=== PATIENT | female | born 1930 | race Caucasian/White ===

== ENCOUNTER 2017-04-05 10:56 | Inpatient (IN) | payer MEDICARE, BC ==
[~2017-04-05] VITALS: Ht 144.8 cm; Wt 53.0 kg
[~2017-04-05 10:56] MED LIST: ALBU90OI INH; ALLO100 PO; ASPI325EC PO; ASPI81CH PO; ATOR20 PO; ATORVASTATIN; ATORVASTATIN CA10 MG PO; ATORVASTATIN CA20 MG PO; Amiodarone HCl200 MG PO; Amoxicillin500 MG PO; BUPR150ER PO; Bactrim Ds Tab1 EACH PO; Benicar5 MG PO; CEFD300 PO; CEPH500 PO; CIPR500 PO; CITA10S PO; CLON.5 PO; CLOP75 PO; CYMBALTA PO; Cartia Xt120 MG PO; Clonazepam0.5 MG PO; Cymbalta20 MG PO; DILT120 PO; Dulcolax Stool100 MG PO; ELIQUIS5 MG PO; FISH1000 PO; FLUSAL5005 INH; FURO20 PO; Ferosul325 MG PO; HYDMOR2 PO; Hair, Skin & N1 EACH PO; Hydrocodone-Ap1 EA23 PO; IRON150C PO; LEFL20 PO; LORA.5 PO; LOSA50 PO; LUTEIN-ZEAXANT1 EACH PO; METTREX2.5 PO; MULVITB PO; Macrobid 100 M100 MG PO; NITR.4SL SL; Nitrostat0.4 MG; OLME20 PO; OLME5TAB PO; OMEP20ER PO; OXYB5 PO; POTA10T PO; PRED10 PO; PRED20 PO; PRED5 PO; PROBIOTIC1 EAC1 PO; Pantoprazole So40 MG PO; Prednisone20 MG PO; QUIN324 PO; SIME80CH PO; SIMV40 PO; TIAZAC PO; TRAZ50 PO; Ventolin/Prove6.7 GM INH; XARELTO20 MG PO; Z PACK; Zithromax250 MG PO; Zofran4 MG PO
[2017-04-05 11:32] LABS: BASOPHILS ABSOLUTE AUTO 0.01 K/mm3 (0.00-0.23); BASOPHILS PERCENT AUTO 0 % (0-2); EOSINOPHILS ABSOLUTE AUTO 0.07 K/mm3 (0.00-0.68); EOSINOPHILS PERCENT AUTO 1 % (0-6); Hematocrit 34.9 % (33.0-51.0); Hemoglobin 11.3 g/dL (11.5-16.0); IMMATURE GRAN ABSOLUTE AUTO 0.02 K/mm3 (0.00-0.10); IMMATURE GRAN PERCENT AUTO 0 % (0-1); LYMPHOCYTES ABSOLUTE AUTO 1.58 K/mm3 (0.84-5.20); LYMPHOCYTES PERCENT AUTO 21 % (21-46); MONOCYTES ABSOLUTE AUTO 0.42 K/mm3 (0.16-1.47); MONOCYTES PERCENT AUTO 6 % (4-13); Mean Corpuscular HGB 31.6 pg (26.0-34.0); Mean Corpuscular HGB Conc 32.4 g/dL (31.5-36.5); Mean Corpuscular Volume 98 fL (80-100); Mean Platelet Volume 9.6 fL (9.1-12.4); NEUTROPHILS ABSOLUTE AUTO 5.46 K/mm3 (1.96-9.15); NEUTROPHILS PERCENT AUTO 72 % (41-73); Platelet Count 220 K/mm3 (150-400); RDW Coefficient Variation 13.6 % (11.7-14.2); RDW Standard Deviation 47.7 fL (35.1-46.3); Red Blood Cell Count 3.58 M/mm3 (3.80-5.20); White Blood Cell Count 7.56 K/mm3 (4.00-11.30)
[2017-04-05 11:50] LABS: Alanine Aminotransfer (ALT/SGP 19 U/L (12-78); Albumin, Blood 3.5 g/dL (3.4-5.0); Albumin/Globulin Ratio 0.9 (0.8-1.8); Alk Phos 129 U/L (50-136); Anion Gap 6 mmol/L (6-16); Aspartate Aminotrans (AST/SGOT 24 U/L (12-37); Bilirubin, Total 0.6 mg/dL (0.1-1.0); Blood Urea Nitrogen 16 mg/dL (8-24); Bun/Creatinine Ratio 22.3 (12.0-20.0); CO2, Blood 28 mmol/L (21-32); Chloride, Blood 108 mmol/L (98-108); Creatinine, Blood 0.72 mg/dL (0.40-1.00); Globulin, Blood 3.7 g/dL (2.2-4.0); Glomerular Filtration Rate >60 (60-); Glucose, Blood 111 mg/dL (70-99); Potassium, Blood 4.3 mmol/L (3.5-5.5); Sodium, Blood 142 mmol/L (136-145); Total Protein, Blood 7.2 g/dL (6.4-8.2); Troponin I <0.015 ng/mL (0.000-0.040)
[2017-04-05] MEDS ORDERED: COLACE 2-IN-11 EACH PO (16:56)
[2017-04-05] MEDS ORDERED: TRAZ50 PO (16:57)
[2017-04-06 04:40] LABS: BASOPHILS PERCENT AUTO 0 % (0-2); EOSINOPHILS PERCENT AUTO 0 % (0-6); Hematocrit 33.3 % (33.0-51.0); Hemoglobin 10.9 g/dL (11.5-16.0); IMMATURE GRAN ABSOLUTE AUTO 0.01 K/mm3 (0.00-0.10); IMMATURE GRAN PERCENT AUTO 0 % (0-1); LYMPHOCYTES ABSOLUTE AUTO 0.66 K/mm3 (0.84-5.20); LYMPHOCYTES PERCENT AUTO 10 % (21-46); MONOCYTES ABSOLUTE AUTO 0.18 K/mm3 (0.16-1.47); MONOCYTES PERCENT AUTO 3 % (4-13); Mean Corpuscular HGB 31.1 pg (26.0-34.0); Mean Corpuscular HGB Conc 32.7 g/dL (31.5-36.5); NEUTROPHILS ABSOLUTE AUTO 5.57 K/mm3 (1.96-9.15); NEUTROPHILS PERCENT AUTO 87 % (41-73); Platelet Count 234 K/mm3 (150-400); RDW Coefficient Variation 13.3 % (11.7-14.2); RDW Standard Deviation 45.7 fL (35.1-46.3); White Blood Cell Count 6.42 K/mm3 (4.00-11.30)
[2017-04-06 04:55] LABS: Mean Corpuscular Volume 95 fL (80-100)
[2017-04-06 05:01] LABS: Alanine Aminotransfer (ALT/SGP 18 U/L (12-78); Albumin, Blood 3.2 g/dL (3.4-5.0); Albumin/Globulin Ratio 0.8 (0.8-1.8); Alk Phos 120 U/L (50-136); Anion Gap 7 mmol/L (6-16); Aspartate Aminotrans (AST/SGOT 18 U/L (12-37); Bilirubin, Total 0.5 mg/dL (0.1-1.0); Blood Urea Nitrogen 20 mg/dL (8-24); Bun/Creatinine Ratio 27.5 (12.0-20.0); CO2, Blood 28 mmol/L (21-32); Chloride, Blood 104 mmol/L (98-108); Creatinine, Blood 0.73 mg/dL (0.40-1.00); Globulin, Blood 3.8 g/dL (2.2-4.0); Glomerular Filtration Rate >60 (60-); Glucose, Blood 134 mg/dL (70-99); Potassium, Blood 4.3 mmol/L (3.5-5.5); Sodium, Blood 139 mmol/L (136-145)
[2017-04-09 04:41] LABS: Anion Gap 7 mmol/L (6-16); Blood Urea Nitrogen 20 mg/dL (8-24); Bun/Creatinine Ratio 26.8 (12.0-20.0); CO2, Blood 31 mmol/L (21-32); Calcium, Blood 8.6 mg/dL (8.5-10.1); Chloride, Blood 104 mmol/L (98-108); Creatinine, Blood 0.75 mg/dL (0.40-1.00); Glomerular Filtration Rate >60 (60-); Glucose, Blood 100 mg/dL (70-99); Potassium, Blood 3.7 mmol/L (3.5-5.5); Sodium, Blood 142 mmol/L (136-145)
[2017-04-10] MEDS ORDERED: Norvasc2.5 MG PO (10:25)
[2017-04-10] MEDS ORDERED: HYDCHL25 PO (10:26)
[2017-04-10] MEDS ORDERED: ELIQUIS2.5 MG PO (10:26)
[2017-04-10] MEDS ORDERED: LISI20 PO (10:27)
[2017-06-25] MEDS ORDERED: Icaps Tablet1 EACH PO (15:06)
[2017-06-25] MEDS ORDERED: PANT40 PO (15:07)
[2017-06-25] MEDS ORDERED: ALBU90OI INH (15:07)
[2017-06-25] MEDS ORDERED: CVS MELATONIN PO (15:08)
[2017-06-25] MEDS ORDERED: Stool Softener100 MG PO (15:09)
[2017-06-25] MEDS ORDERED: ELIQUIS5 MG PO (15:10)
[2017-06-25] MEDS ORDERED: OXYB5 PO (15:10)
[2017-06-25] MEDS ORDERED: Benicar Hct 201 EACH PO (15:10)
== END 2017-04-10 13:16 | disposition home or self-care (01) | DRG 309 ==
LOC: ER 10:56 → PCU 14:05 → SURS 04-09 12:52
PROVIDERS: Internal Medicine; Physician Assistant
DX: I48.0 Paroxysmal atrial fibrillation (principal); J96.11 Chronic respiratory failure with hypoxia; I11.0 Hypertensive heart disease with heart failure; I08.3 Combined rheumatic disorders of mitral, aortic and tricuspid valves; I50.9 Heart failure, unspecified; J84.10 Pulmonary fibrosis, unspecified; J44.9 Chronic obstructive pulmonary disease, unspecified; E78.5 Hyperlipidemia, unspecified; F32.9 Major depressive disorder, single episode, unspecified; M10.9 Gout, unspecified; M06.9 Rheumatoid arthritis, unspecified; K21.9 Gastro-esophageal reflux disease without esophagitis; D63.8 Anemia in other chronic diseases classified elsewhere; Z66 Do not resuscitate; Z86.73 Personal history of transient ischemic attack (TIA), and cerebral infarction without residual deficits; Z88.8 Allergy status to other drugs, medicaments and biological substances; Z79.899 Other long term (current) drug therapy; Z99.81 Dependence on supplemental oxygen; Z87.891 Personal history of nicotine dependence
CPT/HCPCS: 36415; 71046; 80048; 80053; 81000; 83880; 84484; 85025; 92526; 92610; 93005; 93010; 93306; 97161; 97530; 99285; G8978; G8979; G8980; G8996; G8997; G8998; J1650

== ENCOUNTER → 2017-05-07 | Outpatient (CLI) | payer MEDICARE ==
[~2017-05-07] MED LIST changes: +Amlodipine Bes2.5 MG PO; +Benicar Hct 201 EACH PO; +COLACE 2-IN-11 EACH PO; +CVS MELATONIN PO; +DULOXETINE HCL20 MG PO; +ELIQUIS2.5 MG PO; +HYDCHL25 PO; +Icaps Tablet1 EACH PO; +LISI20 PO; +Norvasc2.5 MG PO; +PANT40 PO; +Stool Softener100 MG PO
[2017-05-07 19:21] LABS: Appearance, Urine Cloudy (Clear); Bilirubin, Urine Neg (Neg); Blood, Urine 2+ (Neg); Color, Urine Yellow (P-Yellow); Glucose Qualitative, Urine Neg (Neg); Ketones, Urine Neg (Neg); Leukocyte Esterase, Urine 3+ (Neg); Nitrite, Urine Neg (Neg); Protein, Urine 2+ (Neg); Urobilinogen, Urine NORM (Normal)
[2017-05-07 19:46] LABS: White Blood Cells, Urine 50-100 /hpf (0-5)
[2017-05-07 19:51] LABS: Bacteria Mod /hpf; Squamous Epithelial Cells Few /hpf (Few)
== END ==
LOC: LAB SHORT 16:03
PROVIDERS: Internal Medicine Cardiovascular Disease
DX: N39.0 Urinary tract infection, site not specified (principal)
CPT/HCPCS: 81001; 87086

== ENCOUNTER 2017-05-21 19:16 | Observation (INO) | payer MEDICARE, BC ==
[~2017-05-21] VITALS: Ht 149.9 cm; Wt 53.5 kg
[~2017-05-21 19:16] MED LIST changes: -Amlodipine Bes2.5 MG PO; -Benicar Hct 201 EACH PO; -CVS MELATONIN PO; -DULOXETINE HCL20 MG PO; -Icaps Tablet1 EACH PO; -PANT40 PO; -Stool Softener100 MG PO
[2017-05-21 20:37] LABS: BASOPHILS ABSOLUTE AUTO 0.03 K/mm3 (0.00-0.23); BASOPHILS PERCENT AUTO 0 % (0-2); EOSINOPHILS ABSOLUTE AUTO 0.16 K/mm3 (0.00-0.68); EOSINOPHILS PERCENT AUTO 2 % (0-6); Hematocrit 36.3 % (33.0-51.0); Hemoglobin 11.8 g/dL (11.5-16.0); IMMATURE GRAN ABSOLUTE AUTO 0.02 K/mm3 (0.00-0.10); IMMATURE GRAN PERCENT AUTO 0 % (0-1); LYMPHOCYTES ABSOLUTE AUTO 2.44 K/mm3 (0.84-5.20); LYMPHOCYTES PERCENT AUTO 28 % (21-46); MONOCYTES ABSOLUTE AUTO 0.51 K/mm3 (0.16-1.47); MONOCYTES PERCENT AUTO 6 % (4-13); Mean Corpuscular HGB 30.9 pg (26.0-34.0); Mean Corpuscular HGB Conc 32.5 g/dL (31.5-36.5); Mean Corpuscular Volume 95 fL (80-100); Mean Platelet Volume 9.9 fL (9.1-12.4); NEUTROPHILS ABSOLUTE AUTO 5.69 K/mm3 (1.96-9.15); NEUTROPHILS PERCENT AUTO 64 % (41-73); Platelet Count 243 K/mm3 (150-400); RDW Coefficient Variation 13.4 % (11.7-14.2); RDW Standard Deviation 46.9 fL (35.1-46.3); Red Blood Cell Count 3.82 M/mm3 (3.80-5.20); White Blood Cell Count 8.85 K/mm3 (4.00-11.30)
[2017-05-21 20:50] LABS: International Normalized Ratio 1.04; Prothrombin Time Results 10.8 Sec (9.7-11.5)
[2017-05-21 20:53] LABS: Alanine Aminotransfer (ALT/SGP 36 U/L (12-78); Albumin, Blood 3.3 g/dL (3.4-5.0); Albumin/Globulin Ratio 0.8 (0.8-1.8); Alk Phos 171 U/L (50-136); Anion Gap 8 mmol/L (6-16); Aspartate Aminotrans (AST/SGOT 33 U/L (12-37); Bilirubin, Total 0.2 mg/dL (0.1-1.0); Blood Urea Nitrogen 20 mg/dL (8-24); Bun/Creatinine Ratio 20.3 (12.0-20.0); CO2, Blood 28 mmol/L (21-32); Calcium, Blood 9.3 mg/dL (8.5-10.1); Chloride, Blood 104 mmol/L (98-108); Creatinine, Blood 0.99 mg/dL (0.40-1.00); Globulin, Blood 4.1 g/dL (2.2-4.0); Glomerular Filtration Rate 57 (60-); Glucose, Blood 105 mg/dL (70-99); Potassium, Blood 4.5 mmol/L (3.5-5.5); Sodium, Blood 140 mmol/L (136-145); Total Protein, Blood 7.4 g/dL (6.4-8.2); Troponin I <0.015 ng/mL (0.000-0.040)
[2017-05-22 05:15] LABS: CHOL/HDL RATIO 5.7; Cholesterol 223 mg/dL (50-200); HDL Cholesterol 39 mg/dL (>39); LDL/HDL RATIO 3.8; Low Density Lipoprotein Chol 146 mg/dL (0-110); Triglycerides 188 mg/dL (30-160); Very Low Density Lipoprot Chol 37 mg/dL (6-32)
[2017-05-22 08:14] LABS: Source, Urine Clean Catch
[2017-05-22 08:19] LABS: Bilirubin, Urine Neg (Neg); Blood, Urine Neg (Neg); Glucose Qualitative, Urine Neg (Neg); Ketones, Urine Neg (Neg); Leukocyte Esterase, Urine Neg (Neg); Nitrite, Urine Neg (Neg); Protein, Urine Neg (Neg); Urobilinogen, Urine NORM (Normal)
[2017-05-22 08:25] LABS: Appearance, Urine Clear (Clear); Color, Urine Yellow (P-Yellow)
[2017-06-25] MEDS ORDERED: Icaps Tablet1 EACH PO (15:06)
[2017-06-25] MEDS ORDERED: PANT40 PO (15:07)
[2017-06-25] MEDS ORDERED: ALBU90OI INH (15:07)
[2017-06-25] MEDS ORDERED: CVS MELATONIN PO (15:08)
[2017-06-25] MEDS ORDERED: Stool Softener100 MG PO (15:09)
[2017-06-25] MEDS ORDERED: OXYB5 PO (15:10)
[2017-06-25] MEDS ORDERED: ELIQUIS5 MG PO (15:10)
[2017-06-25] MEDS ORDERED: Benicar Hct 201 EACH PO (15:10)
== END 2017-05-23 15:49 | disposition home or self-care (01) ==
LOC: ER 19:16 → MEDS 21:14 → ENPENDDIS 05-23 15:16 → MEDS 05-23 15:49
PROVIDERS: Emergency Medicine; Family Medicine
DX: I16.0 Hypertensive urgency (principal); I48.2 Chronic atrial fibrillation; I35.0 Nonrheumatic aortic (valve) stenosis; E78.5 Hyperlipidemia, unspecified; K21.9 Gastro-esophageal reflux disease without esophagitis; Z79.01 Long term (current) use of anticoagulants; Z79.899 Other long term (current) drug therapy; Z79.891 Long term (current) use of opiate analgesic; Z86.73 Personal history of transient ischemic attack (TIA), and cerebral infarction without residual deficits; Z90.49 Acquired absence of other specified parts of digestive tract; Z90.710 Acquired absence of both cervix and uterus; Z96.641 Presence of right artificial hip joint; Z87.891 Personal history of nicotine dependence
CPT/HCPCS: 36415; 70450; 70551; 71046; 80053; 80061; 81003; 84484; 85025; 85610; 85730; 93005; 93010; 93880; 97116; 97161; 97165; 97535; 99285; G0378; G8978; G8979; G8980; G8987; G8988; G8989

== ENCOUNTER 2017-06-26 02:38 | Day surgery (SDC) | payer MEDICARE ==
[~2017-06-26] VITALS: Ht 149.9 cm; Wt 53.0 kg
[~2017-06-26 02:38] MED LIST changes: +Benicar Hct 201 EACH PO; +CVS MELATONIN PO; +Icaps Tablet1 EACH PO; +PANT40 PO; +Stool Softener100 MG PO
== END 2017-06-26 12:00 | disposition home or self-care (01) ==
LOC: MHTC 02:38
PROC: B2111ZZ Fluoroscopy of Multiple Coronary Arteries using Low Osmolar Contrast (ICD-10-PCS; principal; 2017-06-26)
DX: I35.2 Nonrheumatic aortic (valve) stenosis with insufficiency (principal); I48.2 Chronic atrial fibrillation; I10 Essential (primary) hypertension; E78.00 Pure hypercholesterolemia, unspecified; K21.9 Gastro-esophageal reflux disease without esophagitis; M06.9 Rheumatoid arthritis, unspecified; J70.4 Drug-induced interstitial lung disorders, unspecified; T45.1X5S Adverse effect of antineoplastic and immunosuppressive drugs, sequela; T46.2X5S Adverse effect of other antidysrhythmic drugs, sequela; Z79.899 Other long term (current) drug therapy; Z79.01 Long term (current) use of anticoagulants; Z88.5 Allergy status to narcotic agent; Z88.6 Allergy status to analgesic agent; Z96.641 Presence of right artificial hip joint; Z90.49 Acquired absence of other specified parts of digestive tract; Z90.710 Acquired absence of both cervix and uterus; Z87.891 Personal history of nicotine dependence; Z87.440 Personal history of urinary (tract) infections
CPT/HCPCS: 93454; 99152; C1769; C1894; J1644; J2250; J3010; J7030; Q9967

== ENCOUNTER → 2017-08-22 | Outpatient (CLI) | payer MEDICARE ==
[2017-08-22 15:33] LABS: Appearance, Urine Cloudy (Clear); Bilirubin, Urine Neg (Neg); Blood, Urine 5+ (Neg); Color, Urine Yellow (P-Yellow); Glucose Qualitative, Urine Neg (Neg); Ketones, Urine 1+ (Neg); Leukocyte Esterase, Urine 3+ (Neg); Nitrite, Urine Pos (Neg); Protein, Urine 3+ (Neg); Specific Gravity, Urine 1.015 (1.003-1.022); Urobilinogen, Urine NORM (Normal)
[2017-08-22 15:49] LABS: Bacteria Many /hpf; Red Blood Cells, Urine TNTC /hpf (0-2); Squamous Epithelial Cells Few /hpf (Few); White Blood Cells, Urine TNTC /hpf (0-5)
== END ==
LOC: LAB SHORT 11:39
PROVIDERS: Internal Medicine Cardiovascular Disease
DX: N39.0 Urinary tract infection, site not specified (principal)
CPT/HCPCS: 81001; 87077; 87086; 87186

== ENCOUNTER 2017-11-24 10:33 | Emergency (ER) | payer MEDICARE ==
[~2017-11-24] VITALS: Ht 149.9 cm; Wt 55.3 kg
[2017-11-24] MEDS ORDERED: Amlodipine Bes2.5 MG PO (11:02)
[2017-11-24] MEDS ORDERED: DULOXETINE HCL20 MG PO (11:03)
[2017-11-24 12:16] LABS: BASOPHILS ABSOLUTE AUTO 0.02 K/mm3 (0.00-0.23); BASOPHILS PERCENT AUTO 0 % (0-2); EOSINOPHILS ABSOLUTE AUTO 0.04 K/mm3 (0.00-0.68); EOSINOPHILS PERCENT AUTO 1 % (0-6); Hematocrit 37.7 % (33.0-51.0); Hemoglobin 12.3 g/dL (11.5-16.0); IMMATURE GRAN ABSOLUTE AUTO 0.02 K/mm3 (0.00-0.10); IMMATURE GRAN PERCENT AUTO 0 % (0-1); LYMPHOCYTES ABSOLUTE AUTO 1.52 K/mm3 (0.84-5.20); LYMPHOCYTES PERCENT AUTO 18 % (21-46); MONOCYTES ABSOLUTE AUTO 0.47 K/mm3 (0.16-1.47); MONOCYTES PERCENT AUTO 6 % (4-13); Mean Corpuscular HGB 31.1 pg (26.0-34.0); Mean Corpuscular HGB Conc 32.6 g/dL (31.5-36.5); Mean Corpuscular Volume 95 fL (80-100); Mean Platelet Volume 10.8 fL (9.1-12.4); NEUTROPHILS ABSOLUTE AUTO 6.25 K/mm3 (1.96-9.15); NEUTROPHILS PERCENT AUTO 75 % (41-73); Platelet Count 167 K/mm3 (150-400); RDW Coefficient Variation 12.9 % (11.7-14.2); RDW Standard Deviation 45.4 fL (35.1-46.3); Red Blood Cell Count 3.95 M/mm3 (3.80-5.20); White Blood Cell Count 8.32 K/mm3 (4.00-11.30)
[2017-11-24 12:38] LABS: Alanine Aminotransfer (ALT/SGP 17 U/L (12-78); Albumin, Blood 3.2 g/dL (3.4-5.0); Albumin/Globulin Ratio 0.8 (0.8-1.8); Alk Phos 104 U/L (50-136); Anion Gap 8 mmol/L (6-16); Aspartate Aminotrans (AST/SGOT 17 U/L (12-37); Bilirubin, Total 0.4 mg/dL (0.1-1.0); Blood Urea Nitrogen 29 mg/dL (8-24); CO2, Blood 28 mmol/L (21-32); Calcium, Blood 8.8 mg/dL (8.5-10.1); Chloride, Blood 105 mmol/L (98-108); Creatinine, Blood 0.88 mg/dL (0.40-1.00); Globulin, Blood 3.9 g/dL (2.2-4.0); Glomerular Filtration Rate >60 (60-); Glucose, Blood 94 mg/dL (70-99); Potassium, Blood 4.3 mmol/L (3.5-5.5); Sodium, Blood 141 mmol/L (136-145); Total Protein, Blood 7.1 g/dL (6.4-8.2); Troponin I <0.015 ng/mL (0.000-0.040)
[2017-11-24 12:44] LABS: Source, Urine Clean Catch
[2017-11-24 12:48] LABS: Bilirubin, Urine Neg (Neg); Blood, Urine Neg (Neg); Glucose Qualitative, Urine Neg (Neg); Ketones, Urine Neg (Neg); Leukocyte Esterase, Urine Neg (Neg); Nitrite, Urine Neg (Neg); Protein, Urine Neg (Neg); Specific Gravity, Urine 1.015 (1.003-1.022); Urobilinogen, Urine NORM (Normal)
[2017-11-24 12:53] LABS: Color, Urine Yellow (P-Yellow)
[2017-11-24 12:54] LABS: Appearance, Urine Clear (Clear)
== END 2017-11-24 13:33 | disposition home or self-care (01) ==
LOC: ER 10:33
PROVIDERS: Physician Assistant
DX: R06.02 Shortness of breath (principal); R53.1 Weakness; I48.91 Unspecified atrial fibrillation; I10 Essential (primary) hypertension; E78.5 Hyperlipidemia, unspecified; K21.9 Gastro-esophageal reflux disease without esophagitis; Z88.5 Allergy status to narcotic agent; Z88.8 Allergy status to other drugs, medicaments and biological substances; Z79.899 Other long term (current) drug therapy; Z79.51 Long term (current) use of inhaled steroids; Z87.891 Personal history of nicotine dependence; Z79.01 Long term (current) use of anticoagulants
CPT/HCPCS: 36415; 71046; 80053; 81003; 84484; 85025; 93005; 93010; 94640; 96374; 99285-25; J2930

== ENCOUNTER 2018-07-31 06:31 | Day surgery (SDC) | payer OTHER ==
[~2018-07-31 06:31] MED LIST changes: +Amlodipine Bes2.5 MG PO; +DULOXETINE HCL20 MG PO
[2018-07-31] MEDS ORDERED: POTA10T PO (06:39)
[2018-07-31] MEDS ORDERED: FURO20 PO (06:40)
[2018-07-31] MEDS ORDERED: NITR100CA PO (06:40)
[2018-07-31] MEDS ORDERED: OLME20 PO (06:40)
[2018-07-31] MEDS ORDERED: HIPREX1 GM PO (07:57)
--- NOTE | 2018-07-31 09:51 | NUR ---
DISCHARGE PT REMAINED A&OX3 AND DENIED ANY PAIN DURING RECOVERY. POST EKG PERFORMED. PT UP TO DRESS SELF. DISCHARGE PAPERWORK GONE OVER WITH PT AND DAUGHTER. PT AND DAUGHTER DENIED ANY QUESTIONS AT THIS TIME. IV DC'D WITH JAE IN TACT. PT WHEELED OUT BY THIS NURSE.
== END 2018-07-31 12:00 | disposition home or self-care (01) ==
LOC: MHTC 06:31
DX: I48.0 Paroxysmal atrial fibrillation (principal); I48.2 Chronic atrial fibrillation; E24.8 Other Cushing's syndrome; J44.9 Chronic obstructive pulmonary disease, unspecified; E78.5 Hyperlipidemia, unspecified; I10 Essential (primary) hypertension; K21.9 Gastro-esophageal reflux disease without esophagitis; M06.9 Rheumatoid arthritis, unspecified; I35.0 Nonrheumatic aortic (valve) stenosis; E78.00 Pure hypercholesterolemia, unspecified; J84.9 Interstitial pulmonary disease, unspecified; N39.0 Urinary tract infection, site not specified; Z88.5 Allergy status to narcotic agent; Z88.4 Allergy status to anesthetic agent; Z79.899 Other long term (current) drug therapy; Z87.891 Personal history of nicotine dependence; Z79.01 Long term (current) use of anticoagulants
CPT/HCPCS: 92960; 93005; 93010; 99152; J2250; J3010; J7040

== ENCOUNTER 2018-08-14 17:11 | Inpatient (IN) | payer OTHER ==
[~2018-08-14] VITALS: Ht 149.9 cm; Wt 55.0 kg
[~2018-08-14 17:11] MED LIST changes: +HIPREX1 GM PO; +NITR100CA PO
[2018-08-14 18:25] LABS: BASOPHILS ABSOLUTE AUTO 0.03 K/mm3 (0.00-0.23); BASOPHILS PERCENT AUTO 0 % (0-2); EOSINOPHILS ABSOLUTE AUTO 0.05 K/mm3 (0.00-0.68); EOSINOPHILS PERCENT AUTO 1 % (0-6); Hematocrit 38.5 % (33.0-51.0); Hemoglobin 12.9 g/dL (11.5-16.0); IMMATURE GRAN ABSOLUTE AUTO 0.03 K/mm3 (0.00-0.10); IMMATURE GRAN PERCENT AUTO 0 % (0-1); LYMPHOCYTES ABSOLUTE AUTO 2.14 K/mm3 (0.84-5.20); LYMPHOCYTES PERCENT AUTO 25 % (21-46); MONOCYTES ABSOLUTE AUTO 0.51 K/mm3 (0.16-1.47); MONOCYTES PERCENT AUTO 6 % (4-13); Mean Corpuscular HGB 31.9 pg (26.0-34.0); Mean Corpuscular HGB Conc 33.5 g/dL (31.5-36.5); Mean Corpuscular Volume 95 fL (80-100); Mean Platelet Volume 10.3 fL (9.1-12.4); NEUTROPHILS ABSOLUTE AUTO 5.78 K/mm3 (1.96-9.15); NEUTROPHILS PERCENT AUTO 68 % (41-73); Platelet Count 195 K/mm3 (150-400); RDW Coefficient Variation 13.2 % (11.7-14.2); RDW Standard Deviation 46.5 fL (35.1-46.3); Red Blood Cell Count 4.05 M/mm3 (3.80-5.20); White Blood Cell Count 8.54 K/mm3 (4.00-11.30)
[2018-08-14 18:50] LABS: Anion Gap 5 mmol/L (6-16); Blood Urea Nitrogen 18 mg/dL (8-24); Bun/Creatinine Ratio 24.1 (12.0-20.0); CO2, Blood 30 mmol/L (21-32); Calcium, Blood 9.3 mg/dL (8.5-10.1); Chloride, Blood 104 mmol/L (98-108); Creatinine, Blood 0.75 mg/dL (0.40-1.00); Glomerular Filtration Rate >60 (60-); Glucose, Blood 89 mg/dL (70-99); Potassium, Blood 3.6 mmol/L (3.5-5.5); Sodium, Blood 139 mmol/L (136-145)
--- NOTE | 2018-08-15 01:47 | NUR ---
ASSUMED CARE OF PATIENT AT APPROXIMATELY 1910 FROM MYNOR Sanchez RN. PATIENT ALERT AND ORIENTED X4; FORGETFUL AT TIMES; UNABLE TO PROVIDE MEDICATION RECONCILE. PATIENT DIRECT ADMIT BY DR. MILLS ON DAYSHIFT. 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 PATIENT DENIES PAIN. PATIENT APPEARS ANXIOUS AT START OF SHIFT. PATIENT REPORTS NUMBNESS FROM LOWER KNEE TO FOOT IN LEFT LEG D/T PREVIOUS CVA. PATIENT DENIES TINGLING AND NAUSEA. PATIENT REPORTS FREQUENT DIZZINESS AT HOME. PATIENT WAS AFIB ON TELE AT SHIFT CHANGE 100-110'S; SOTALOL STARTED LAST NIGHT; THROUGH OUT THE NIGHT PATIENT'S RATE DECREASED TO AVERAGING 40S AFIB; PATIENT BEGAN HAVING PAUSES AT APPROXIMATELY 2300; ABOUT 8 TOTAL SINCE THEN 3-4 SECONDS; PATIENT RECENTLY IN THE 0100 HOUR HAS CONVERTED TO SINUS BETSEY W/ RATE IN THE 50S. PATIENT HAS BEEN SLEEPING WELL SINCE APPROXIMATELY 2300 AFTER VITAL SIGNS TAKEN; VSS. DR. GLASS CARDIO IMAGE PROCESSING ENGINEER; PAGED AND TALKED TO AT APPROXIMATELY 0040; INSTRUCTIONS TO HOLD SOTALOL IN AM; NO OTHER ORDERS RECIEVED. OXYGEN SATURATION ABOVE 90% ON BASELINE OF 2LPM VIA NC. PIV S/L. PATIENT CURRENTLY RESTING IN BED; CALL LIGHT IN REACH; BED IN LOWEST POSISTION; WILL CONTINUE TO MONITOR AND ASSESS UNTIL END OF SHIFT.
--- NOTE | 2018-08-15 05:35 | NUR ---
PATIENT REPORTS SHE NEEDS 1/2 DOSE OF TRAZADONE FOR TONIGHT BECAUSE SHE FEELS SHE SLEPT TOO HARD. PATIENT REPORTS DIZZINESS UPON STANDING THAT IS DIFFERENT FROM DIZZINESS SHE HAS EARLIER IN SHIFT; PATIENT ALSO REPORTS "I FEEL EMPTY" RUBBING ABDOMEN.
--- NOTE | 2018-08-15 13:41 | NUR ---
Patient is sitting on a chair and alert. Therapeutic alliance is easily established so patient openly shares about her family, her [employer] background and about the of her . Patient is showed signs of being encouraged by conversation that centers around God and His attributes. So I lingered there there and allowed patient time to share the things that are clearly meaningful to her. I listened empathically, provided grief support, reinforced helpful attitudes and practices, encouraged self-care, explored sources of meaning and dignity and provided prayer. Patient responded well and displayed evidence of restored vianey.
--- NOTE | 2018-08-15 17:11 | NUR ---
PT HAD A GOOD DAY TODAY, SHE STATED SHE FELT GOOD THIS MORNING AFTER CONVERTING FROM AFIB OVERNIGHT. PT REPORTED NO CHEST PAIN OR DISCOMFORT AND VSS. PT ABLE TO WALK INDEPENDENTLY WITH SBA TO BATHROOM. DR CHANGED SOTOLOL DOSE TO 40 MG, PT MET PARAMETERS FOR AFTERNOON DOSE. HR HAS NOT BEEN <60 PER TELE MONITOR. WILL CONTINUE TO MONITOR AND GIVE REPORT TO CHACHO KEARNEY.
--- NOTE | 2018-08-16 07:46 | NUR ---
SHIFT SUMMARY A/O, ABLE TO MAKE NEEDS KNOWN. [place]. COOPERATIVE WITH CARE. ANSWERS QUESTIONS APPROPRIATELY. NO C/O PAIN/DISCOMFORT T/O SHIFT. APPEARED TO REST; BUT PATIENT STATED THAT SHE WAS NOT ABLE TO SLEEP MUCH OVERNIGHT. BED IN LOWEST POSITION. CALL LIGHT AND BELONGINGS WITHIN REACH. CONTINUED TO MONITOR T/O SHIFT. REPORT GIVEN TO ONCOMING RN.
[2018-08-16 08:34] LABS: BASOPHILS ABSOLUTE AUTO 0.02 K/mm3 (0.00-0.23); BASOPHILS PERCENT AUTO 0 % (0-2); EOSINOPHILS ABSOLUTE AUTO 0.07 K/mm3 (0.00-0.68); EOSINOPHILS PERCENT AUTO 1 % (0-6); Hematocrit 36.8 % (33.0-51.0); Hemoglobin 12.1 g/dL (11.5-16.0); IMMATURE GRAN ABSOLUTE AUTO 0.03 K/mm3 (0.00-0.10); IMMATURE GRAN PERCENT AUTO 0 % (0-1); LYMPHOCYTES ABSOLUTE AUTO 1.65 K/mm3 (0.84-5.20); LYMPHOCYTES PERCENT AUTO 17 % (21-46); MONOCYTES ABSOLUTE AUTO 0.64 K/mm3 (0.16-1.47); MONOCYTES PERCENT AUTO 7 % (4-13); Mean Corpuscular HGB 31.3 pg (26.0-34.0); Mean Corpuscular HGB Conc 32.9 g/dL (31.5-36.5); Mean Corpuscular Volume 95 fL (80-100); Mean Platelet Volume 10.6 fL (9.1-12.4); NEUTROPHILS ABSOLUTE AUTO 7.32 K/mm3 (1.96-9.15); NEUTROPHILS PERCENT AUTO 75 % (41-73); Platelet Count 180 K/mm3 (150-400); RDW Coefficient Variation 13.2 % (11.7-14.2); RDW Standard Deviation 46.1 fL (35.1-46.3); Red Blood Cell Count 3.87 M/mm3 (3.80-5.20); White Blood Cell Count 9.73 K/mm3 (4.00-11.30)
[2018-08-16 08:53] LABS: Anion Gap 6 mmol/L (6-16); Blood Urea Nitrogen 22 mg/dL (8-24); Bun/Creatinine Ratio 27.7 (12.0-20.0); CO2, Blood 33 mmol/L (21-32); Calcium, Blood 9.1 mg/dL (8.5-10.1); Chloride, Blood 99 mmol/L (98-108); Creatinine, Blood 0.79 mg/dL (0.40-1.00); Glomerular Filtration Rate >60 (60-); Glucose, Blood 96 mg/dL (70-99); Magnesium, Blood 1.6 mg/dL (1.6-2.4); Potassium, Blood 3.5 mmol/L (3.5-5.5); Sodium, Blood 138 mmol/L (136-145)
--- NOTE | 2018-08-16 18:00 | NUR ---
Spoke with Yaneth, the pt's daughter regarding the pt's general condition and how she has been doing today. The pt has been alert, oriented, and cooperative. She has been ambulatory to the bathroom without any difficulty, with standby assistance with staff. She has denied any adverse symptoms, dyspnea or discomfort today.
--- NOTE | 2018-08-16 20:09 | NUR ---
The pt has been stable today, denies any discomfort or dyspnea. She has been sitting up in the chair and ambulating to the bathroom without any difficulty. States that she feels so much better now that she is in a regular heart rhythm. Continues to show Lexi sinus rhythm per telemetry monitoring. Daily EKGs are continued per Dr. Metz' original admission orders.
[2018-08-17 04:42] LABS: Anion Gap 6 mmol/L (6-16); Blood Urea Nitrogen 25 mg/dL (8-24); Bun/Creatinine Ratio 31.7 (12.0-20.0); CO2, Blood 33 mmol/L (21-32); Calcium, Blood 8.8 mg/dL (8.5-10.1); Chloride, Blood 102 mmol/L (98-108); Creatinine, Blood 0.79 mg/dL (0.40-1.00); Glomerular Filtration Rate >60 (60-); Glucose, Blood 87 mg/dL (70-99); Magnesium, Blood 2.2 mg/dL (1.6-2.4); Potassium, Blood 3.6 mmol/L (3.5-5.5); Sodium, Blood 141 mmol/L (136-145)
--- NOTE | 2018-08-17 06:50 | NUR ---
08/17/18 0530 AWAKENED FOR AM MED. CHEERFUL AND DENIES ANY S/S. VITALS STABLE. SLEPT WELL LAST NIGHT. HEART MONITOR STABLE AT SR-SB 55-68.
--- NOTE | 2018-08-17 11:38 | NUR ---
BP 96/51. PT DECLINES DIZZINESS OR LIGHTHEADEDNESS. UP IN CHAIR FOR LUNCH WITH NO COMPLAINTS AT THIS TIME
--- NOTE | 2018-08-17 18:07 | NUR ---
PT UP IN CHAIR FOR MEALS AND MOST OF THE DAY TODAY. AMBULATING WITH MINIMAL ASSISTANCE TO BATHROOM. BP 96/51 THIS AM W/ PT DECLINING DIZZINESS. BP UP TO 125/47 AA X4 PLEASANT AND COOPERATIVE.
[2018-08-18 04:34] LABS: Anion Gap 5 mmol/L (6-16); Blood Urea Nitrogen 30 mg/dL (8-24); Bun/Creatinine Ratio 36.8 (12.0-20.0); CO2, Blood 31 mmol/L (21-32); Calcium, Blood 9.1 mg/dL (8.5-10.1); Chloride, Blood 102 mmol/L (98-108); Creatinine, Blood 0.82 mg/dL (0.40-1.00); Glomerular Filtration Rate >60 (60-); Glucose, Blood 93 mg/dL (70-99); Potassium, Blood 3.9 mmol/L (3.5-5.5); Sodium, Blood 138 mmol/L (136-145)
--- NOTE | 2018-08-18 06:50 | NUR ---
SHIFT SUMMARY PT HAS REMAINED AOX4 THROUGHOUT SHIFT. VSS. PLEASANT AND COOPERATIVE WITH CARE. PT CONTINUES TO AMBULATE WITH STANDBY ASSIST TO THE BATHROOM. PT HAS DENIED CHEST PAIN. CONTINUES TO REPORT SOME DIZZINESS UPON STANDING AND WITH AMBULATION. O2 SATS HAVE REMAINED >90% ON 2L VIA NASAL CANNULA, WHICH IS BASELINE O2. PT HAS NO REPORTS OF DYSPNEA ON EXERTION. NO OTHER CHANGES NOTED FROM INITIAL ASSESSMENT. WILL CONTINUE TO MONITOR AND REPORT TO ONCOMING SHIFT RN. BED IN LOW POSITION,CALL LIGHT IN REACH.
[2018-08-18] MEDS ORDERED: Sotalol80 MG PO (12:36)
--- NOTE | 2018-08-18 13:17 | NUR ---
REPORT RECEIVED FROM IAIN KEARNEY. NO ACUTE CHANGES NOTED. DISCHARGE ORDERS RECEIVED FOR PATIENT. PATIENT STATES SHE IS FEELING WELL. PATIENT PASSED HER HOME O2 EVAL, NO O2 REQUIRED. PATIENT STATES THE DIZZINESS HAD RESOLVED AND SHE IS READY TO GO HOME. PATIENT WILL DISCHARGE HOME WITH HER DAUGHTER. ALL MEDICATIONS FAXED TO [facility]. WILL CONTINUE TO MONITOR UNTIL DISCHARGE.
--- NOTE | 2018-08-18 14:03 | NUR ---
DISCHARGE PT A&OX3 AND DENIED ANY PAIN AT THIS TIME. IV DC'D WITH JAE IN TACT. DISCHARGE PAPERWORK GONE OVER WITH PT AND DAUGHTER. PT AND DAUGHTER VERBALLY STATED THE UNDERSTANDING OF THE DISCHARGE EDUCATION GIVEN AND DENIED ANY QUESTIONS AT THIS TIME. PT WHEELED OUT WITH BELONGINGS BY Alexandre [place].
== END 2018-08-18 14:11 | disposition home or self-care (01) | DRG 310 ==
LOC: PCU 17:11
PROVIDERS: Internal Medicine Cardiovascular Disease; ADMIT Internal Medicine Cardiovascular Disease
DX: I48.0 Paroxysmal atrial fibrillation (principal); R00.1 Bradycardia, unspecified; E87.6 Hypokalemia; Z99.81 Dependence on supplemental oxygen; E83.42 Hypomagnesemia; I35.0 Nonrheumatic aortic (valve) stenosis; I25.10 Atherosclerotic heart disease of native coronary artery without angina pectoris; J44.9 Chronic obstructive pulmonary disease, unspecified; M10.9 Gout, unspecified; M06.9 Rheumatoid arthritis, unspecified; Z66 Do not resuscitate; I44.0 Atrioventricular block, first degree; Z79.01 Long term (current) use of anticoagulants
CPT/HCPCS: 36415; 80048; 83735; 85025; 93005; 93010; 94761; J3475